=== PATIENT | female | born 1990 | race African-American/Black ===

== ENCOUNTER 2017-12-27 16:27 | Emergency (ER) | payer BC ==
[2017-12-27 16:38] VITALS: BP 106/57; PULSE 81; TEMP 98.5; BMI 26.6
--- NOTE | 2017-12-27 17:29 | PDOC ---
History of Present Illness - General Chief Complaint: Laceration Stated Complaint: LACERATION TO WRIST Time Seen by Provider: 12/27/17 16:53 History Source: Patient Exam Limitations: No Limitations - History of Present Illness Initial Comments: 12/27/17 17:25 Pt is a 27 y/o F who presents to the ED with lacerations to her R wrist. Pt states that the glass door at home shattered and cut her wrist. She was able to control the bleeding at home. Last tetanus shot was two years ago. Pt able to flex and extend the wrist. Denies fevers, chills, numbness and tingling to the extremity. Past History - Travel Traveled outside of the country in the last 30 days: No Close contact w/someone who was outside of country & ill: No - Past Medical History Allergies/Adverse Reactions: Allergies Allergy/AdvReac Type Severity Reaction Status Date / Time No Known Allergies Allergy Verified 12/27/17 16:32 Home Medications: Ambulatory Orders NK [No Known Home Medication] 03/24/15 CVA: No COPD: No - Immunization History Immunization Up to Date: Yes - Suicide/Smoking/Psychosocial Hx Smoking History: Never smoked Have you smoked in the past 12 months: No Hx Alcohol Use: No Drug/Substance Use Hx: No Substance Use Type: None Review of Systems - Review of Systems Able to Perform ROS?: Yes Comments:: 12/27/17 17:22 CONSTITUTIONAL: Absent: fever, chills, diaphoresis, generalized weakness, malaise, loss of appetite MUSCULOSKELETAL: Absent: myalgia, arthralgia, joint swelling SKIN: Present: laceration to R wrist Absent: rash, itching, pallor HEMATOLOGIC/IMMUNOLOGIC: Absent: easy bleeding, easy bruising, lymphadenopathy, frequent infections NEUROLOGIC: Absent: headache, focal weakness or paresthesias, dizziness, unsteady gait, seizure, mental status changes, bladder or bowel incontinence PSYCHIATRIC: Absent: anxiety, depression, suicidal or homicidal ideation, hallucinations. Is the patient limited Divehi proficient: No *Physical Exam - Vital Signs Last Vital Signs Temp Pulse Resp BP Pulse Ox 98.5 F 81 16 106/57 100 12/27/17 16:32 12/27/17 16:32 12/27/17 16:32 12/27/17 16:32 12/27/17 16:32 - Physical Exam Comments: 12/27/17 17:24 GENERAL: The patient is awake, alert, and fully oriented, in no acute distress. HEAD: Normal with no signs of trauma. EYES: Pupils equal, round and reactive to light, extraocular movements intact, sclera anicteric, conjunctiva clear. EXTREMITIES: Normal range of motion, no edema. NEUROLOGICAL: Normal speech, normal gait. PSYCH: Normal mood, normal affect. SKIN: 2 1cm superficial lacerations to the R distal volar wrist. Abrasions to R palm. Warm, Dry, normal turgor, no rashes or lesions noted.] Procedures - Laceration/Wound Repair Right Distal Volar Wrist Wound Length: to 2.5 cm Wound's Depth, Shape: superficial Irrigated w/ Saline: Yes Betadine Prep: No Wound Repaired With: Dermabond Medical Decision Making - Medical Decision Making 12/27/17 17:27 elena is a 27 y/o F who presents to the ED with lacerations to her R wrist. No glass found in the wounds. -2 1cm superficial lacerations the the distal volar R wrist -Tetanus UTD -Repaired with dermabond -DC home -I discussed the physical exam findings, ancillary test results and final diagnoses with the patient. I answered all of the patient's questions. The patient was satisfied with the care received and felt comfortable with the discharge plan and treatment plan. The Patient agrees to follow up with the primary care physician/specialist within 24-72 hours. Return precautions were given. *DC/Admit/Observation/Transfer Diagnosis at time of Disposition: Laceration of wrist Qualifiers: Encounter type: initial encounter Laterality: right Qualified Code(s): S61.511A - Laceration without foreign body of right wrist, initial encounter - Discharge Dispostion Disposition: HOME Condition at time of disposition: Stable Decision to Admit order: No - Referrals Referrals: Ramiro Kimball MD [Staff Physician] - - Patient Instructions Printed Discharge Instructions: DI for Laceration Repair With Dermabond Additional Instructions: You had your cut fixed today with dermabond Avoid soaking the wrist. Keep it dry when showering. Please keep the area clean and pat dry. The glue will fall off on its own. You may take Tylenol or Motrin as needed for pain. Return to the emergency department sooner if you have area of redness around the site, purulent drainage, fevers, or have any changes in your symptoms. - Post Discharge Activity
== END 2017-12-27 17:34 | disposition home or self-care (01) ==
LOC: JERFT 16:27
PROC: 0HQDXZZ Repair Right Lower Arm Skin, External Approach (ICD-10-PCS; principal; 2017-12-27)
DX: S61.511A Laceration without foreign body of right wrist, initial encounter (principal); W25.XXXA Contact with sharp glass, initial encounter; Y93.89 Activity, other specified; Y92.018 Other place in single-family (private) house as the place of occurrence of the external cause; Y99.8 Other external cause status
CPT/HCPCS: 99281-25

== ENCOUNTER 2018-05-17 14:23 | Emergency (ER) | payer BC ==
[2018-05-17 14:30] VITALS: BP 117/65; PULSE 76; TEMP 98.3; BMI 27.4
[2018-05-17] MEDS ORDERED: IBUPROFEN 600 MG TABLET (FP) PO ONE ×2 (14:34→14:35)
--- NOTE | 2018-05-17 14:41 | PDOC ---
Attending Attestation - Resident Resident Name: Nayan Mckeon - ED Attending Attestation I have performed the following: I have examined & evaluated the patient, The case was reviewed & discussed with the resident, I agree w/resident's findings & plan, Exceptions are as noted - HPI HPI: 05/17/18 14:36 27 yo F with no pmhx here with c/o foot injury. right foot twisted when getting up from toilet. foot slipped under door. happened earlier today . now pain with walking no swelling no eccymosis . minor abrasions. no knee or hip pain. - Physicial Exam PE: 05/17/18 14:39 Awake alert no acute distress ambulating with out difficulty. 05/17/18 15:32 - Medical Decision Making 05/17/18 14:41 pt with likley sprain vs. fracture. plan xray pain control. 05/17/18 15:33 xray read negative by radiology. dc home with sara and latrice pcp.
--- NOTE | 2018-05-17 15:02 | PDOC ---
History of Present Illness - General Chief Complaint: Injury Stated Complaint: RT FOOT INJURY Time Seen by Provider: 05/17/18 14:25 History Source: Patient Exam Limitations: No Limitations - History of Present Illness Initial Comments: 05/17/18 14:57 Patient is a 27F no significant medical history here today with right foot pain after she slipped and ran her foot underneath a door. Denies trauma to any other part of her body. This happened today. Able to ambulate. LMP 1 week ago. No fevers, chills, nausea, vomiting. No dysuria. Past History - Past Medical History Allergies/Adverse Reactions: Allergies Allergy/AdvReac Type Severity Reaction Status Date / Time No Known Allergies Allergy Verified 05/17/18 14:24 Home Medications: Ambulatory Orders NK [No Known Home Medication] 03/24/15 CVA: No COPD: No Other medical history: DENIES - Immunization History Immunization Up to Date: Yes - Suicide/Smoking/Psychosocial Hx Smoking History: Never smoked Have you smoked in the past 12 months: No Information on smoking cessation initiated: No Hx Alcohol Use: No Drug/Substance Use Hx: No Substance Use Type: None Review of Systems - Review of Systems Comments:: 05/17/18 15:02 GENERAL/CONSTITUTIONAL: No fever or chills. No weakness. HEAD, EYES, EARS, NOSE AND THROAT: No change in vision. No ear pain or discharge. No sore throat. CARDIOVASCULAR: No chest pain or shortness of breath RESPIRATORY: No cough, wheezing, or hemoptysis. GASTROINTESTINAL: No nausea, vomiting, diarrhea or constipation. GENITOURINARY: No dysuria, frequency, or change in urination. MUSCULOSKELETAL: +R foot pain. No neck or back pain. SKIN: No rash NEUROLOGIC: No headache, vertigo, loss of consciousness, or change in strength/ sensation. *Physical Exam - Vital Signs Last Vital Signs Temp Pulse Resp BP Pulse Ox 98.3 F 76 18 117/65 99 05/17/18 14:23 05/17/18 14:23 05/17/18 14:23 05/17/18 14:23 05/17/18 14:23 - Physical Exam Comments: 05/17/18 15:02 GENERAL: Awake, alert, and fully oriented, in no acute distress R FOOT: 2 small abrasions on dorsal aspect of foot. Nontender exam, normal movement of toes and ankle. Nontender tib/fib and midfoot. Able to walk without a limp. HEAD: No signs of trauma, normocephalic, atraumatic LUNGS: No distress, speaks full sentences, clear to auscultation bilaterally HEART: Regular rate and rhythm, normal S1 and S2, no murmurs, rubs or gallops, peripheral pulses normal and equal bilaterally. ABDOMEN: Soft, nontender, normoactive bowel sounds. No guarding, no rebound. No masses EXTREMITIES: Normal inspection, Normal range of motion, no edema. No clubbing or cyanosis. NEUROLOGICAL: Cranial nerves II through XII grossly intact. Normal speech, normal gait, no focal sensorimotor deficits SKIN: Warm, Dry, normal turgor, no rashes or lesions noted. Moderate Sedation - Procedure Monitoring Vital Signs: Procedure Monitoring Vital Signs Temperature 98.3 F 05/17/18 14:23 Pulse Rate 76 05/17/18 14:23 Respiratory Rate 18 05/17/18 14:23 Blood Pressure 117/65 05/17/18 14:23 O2 Sat by Pulse Oximetry (%) 99 05/17/18 14:23 ED Treatment Course - RADIOLOGY Radiology Studies Ordered: Category Date Time Status FOOT-RIGHT [RAD] Stat Radiology 05/17/18 14:33 Ordered - Medications Given in the ED: ED Medications Discontinued Medications Generic Name Dose Route Start Last Admin Trade Name Varun PRN Reason Stop Dose Admin Ibuprofen 600 mg 05/17/18 14:34 05/17/18 14:37 Motrin - PO 05/17/18 14:35 600 mg ONCE ONE Administration Medical Decision Making - Medical Decision Making 05/17/18 15:03 Eliana is 27F here today with foot pain. X-rays ordered. Low suspicion for fracture, likely discharge. *DC/Admit/Observation/Transfer Diagnosis at time of Disposition: Foot pain, right - Discharge Dispostion Disposition: HOME Condition at time of disposition: Good Decision to Admit order: No - Referrals - Patient Instructions Printed Discharge Instructions: DI for Foot Pain Additional Instructions: Please return if your pain does not improve in the next few days or if you are unable to walk. Please take motrin for shari. - Post Discharge Activity
== END 2018-05-17 15:30 | disposition home or self-care (01) ==
LOC: FER 14:23
DX: M79.671 Pain in right foot (principal)
CPT/HCPCS: 73630-TC-RT-FY; 84703; 99283-25

== ENCOUNTER 2018-08-12 09:30 | Emergency (ER) | payer BC ==
[2018-08-12 09:58] VITALS: BP 106/71; PULSE 80; TEMP 97.9; BMI 26.6
[2018-08-12] MEDS ORDERED: FAMOTIDINE 20 MG TABLET PO ONE (10:20)
--- NOTE | 2018-08-12 10:20 | PDOC ---
History of Present Illness - General Chief Complaint: Rash Stated Complaint: rash Time Seen by Provider: 08/12/18 10:12 History Source: Patient (Patient walked in complaining of a skin rash over dorsum of the hands first , then dorsum of feet with mild to moderate itching.) Exam Limitations: No Limitations - History of Present Illness Timing/Duration: unsure Severity: mild, moderate Associated Symptoms: reports: denies symptoms Past History - Travel Traveled outside of the country in the last 30 days: No Close contact w/someone who was outside of country & ill: No - Past Medical History Allergies/Adverse Reactions: Allergies Allergy/AdvReac Type Severity Reaction Status Date / Time No Known Allergies Allergy Verified 08/12/18 09:31 Home Medications: Ambulatory Orders NK [No Known Home Medication] 03/24/15 CVA: No COPD: No - Immunization History Immunization Up to Date: Yes - Suicide/Smoking/Psychosocial Hx Smoking History: Never smoked Have you smoked in the past 12 months: No Information on smoking cessation initiated: No Hx Alcohol Use: No Drug/Substance Use Hx: No Substance Use Type: None Review of Systems - Review of Systems Able to Perform ROS?: Yes Is the patient limited Luxembourgish proficient: Yes Constitutional: No: Symptoms Reported, See HPI, Chills, Diaphoresis, Fever, Loss of Appetite, Malaise, Night Sweats, Weakness, Weight Stable, Unintentional Wgt. Loss, Unexplained wgt Loss, Other HEENTM: No: Symptoms Reported, See HPI, Eye Pain, Blurred Vision, Tearing, Recent change in vision, Double Vision, Cataracts, Ear Pain, Ocular Prothesis, Ear Discharge, Nose Pain, Nose Congestion, Tinnitus, Nose Bleeding, Hearing Loss , Throat Pain, Throat Swelling, Mouth Pain, Dental Problems, Difficulty Swallowing, Mouth Swelling, Other Respiratory: No: Symptoms reported, See HPI, Cough, Orthopnea, Shortness of Breath, SOB with Exertion, SOB at Rest, Stridor, Wheezing, Productive cough, Hemoptysis, Other Cardiac (ROS): No: Symptoms Reported, See HPI, Chest Pain, Edema, Irregular Heart Rate, Lightheadedness, Palpitations, Syncope, Chest Tightness, Other ABD/GI: No: Symptoms Reported, See HPI, Abdominal Distended, Abd. Pain w/ defecation, Blood Streaked Bowels, Constipated, Diarrhea, Difficulty Swallowing , Nausea, Poor Appetite, Poor Fluid Intake, Rectal Bleeding, Vomiting, Indigestion, Abdominal cramping, Tarry Stools, Other : No: Symptoms Reported, See HPI, Burning, Dysuria, Discharge, Frequency, Flank Pain, Hematuria, Incontinence, Pain, Urgency, Testicular Mass, Testicular Swelling, Lesions, Testicular Pain, Other Musculoskeletal: No: Symptoms Reported, See HPI, Back Pain, Gout, Joint Pain, Joint Swelling, Muscle Pain, Muscle Weakness, Neck Pain, Joint Stiffness, Other Integumentary: Yes: Symptoms Reported, See HPI, Rash Neurological: No: Symptoms reported, See HPI, Headache, Numbness, Paresthesia, Pre-Existing Deficit, Seizure, Tingling, Tremors, Weakness, Unsteady Gait, Ataxia, Dizziness, Other Psychiatric: No: Anxiety, Depression, Frequent Crying, Stressors, Sleep Pattern Change, Emotional Problems, Mood Swings, Change in Appetite, Other Endocrine: No: Symptoms Reported, See HPI, Excessive Sweating, Flushing, Intolerance to Cold, Intolerance to Heat, Increased Hunger, Increased Thirst, Increased Urine, Unexplained Weight Gain, Unexplained Weight Loss, Change in Weight, Other Hematologic/Lymphatic: No: Symptoms Reported, See HPI, Anemia, Blood Clots, Easy Bleeding, Easy Bruising, Bleeding Diathesis, Lymph Node Abnormalities, Swollen Glands, Other All Other Systems: Reviewed and Negative *Physical Exam - Vital Signs Last Vital Signs Temp Pulse Resp BP Pulse Ox 97.9 F 80 20 106/71 100 08/12/18 09:30 08/12/18 09:30 08/12/18 09:30 08/12/18 09:30 08/12/18 09:30 - Physical Exam General Appearance: Yes: Nourished, Appropriately Dressed, Mild Distress HEENT: positive: [place], Normal ENT Inspection, Normal Voice Neck: positive: Trachea midline, Supple Respiratory/Chest: positive: Lungs Clear Cardiovascular: positive: Regular Rate Lymphatic: negative: Adenopathy, Tenderness, Other Musculoskeletal: positive: Normal Inspection Extremity: positive: Normal Capillary Refill Integumentary: positive: Normal Color, Dry, Rash (Fine normal color rash on hands and feet dorsum aspects, small bumpy elements) Neurologic: positive: Fully Oriented, Alert, Normal Mood/Affect Medical Decision Making - Medical Decision Making Patient was given in ED H2 Inhibitor Po and steroid cream D/C home with same 08/12/18 14:04 *DC/Admit/Observation/Transfer Diagnosis at time of Disposition: Contact dermatitis Qualifiers: Contact dermatitis type: unspecified Contact dermatitis trigger: other trigger Qualified Code(s): L25.8 - Unspecified contact dermatitis due to other agents - Discharge Dispostion Disposition: HOME Condition at time of disposition: Improved Decision to Admit order: No - Referrals Referrals: Renzo Tijerina [Non Staff, Medical] - - Patient Instructions Printed Discharge Instructions: DI for Contact Dermatitis Additional Instructions: Avoiid any skin irritant soaps, detergents If no improvement follow up with the Investment Representative Apply triamcinolon cream twice a day - Post Discharge Activity
[2018-08-12] MEDS ORDERED: FAMOTIDINE 20 MG TABLET ONE (10:28)
[2018-08-12] MEDS ORDERED: TRIAMCINOLONE ACET 0.1% CREAM 15 GM TUBE TP SCH (11:00)
== END 2018-08-12 10:52 | disposition home or self-care (01) ==
LOC: FER 09:30
DX: L25.8 Unspecified contact dermatitis due to other agents (principal)
CPT/HCPCS: 99281-25

== ENCOUNTER 2021-12-24 17:49 | Emergency (ER) | payer BC, OTHER ==
[2021-12-24 18:05] VITALS: BP 118/77; PULSE 69; RESP 18; TEMP 97.8; BMI 27.4
[2021-12-24 19:09] LABS: EPITHELIAL CELLS FEW /hpf
== END 2021-12-24 19:10 | disposition home or self-care (01) ==
LOC: FER 17:49
DX: K62.5 Hemorrhage of anus and rectum (principal)
CPT/HCPCS: 81003; 81015; 84703; 99283-25